=== PATIENT | female | born 1935 | race Two or more races ===

== ENCOUNTER 2025-01-19 09:32 | Emergency (ER) | payer OTHER ==
[~2025-01-19] VITALS: Ht 152.4 cm; Wt 72.6 kg
[2025-01-19] MEDS ORDERED: JANUVIA100 MG PO (09:47)
[2025-01-19] MEDS ORDERED: SIMVASTATIN80 MG PO (09:48)
[2025-01-19] MEDS ORDERED: LOSARTAN POTASS25 MG PO (10:09)
[2025-01-19 10:52] LABS: BASO % 0.3 % (0.1-1.2); EOS # 0.18 (0.04-0.54); EOS % 1.9 % (0.7-7.0); LYMPH # 2.00 (1.18-3.74); LYMPH % 21.6 % (19.3-53.1); MEAN PLATELET VOLUME 9.90 fl (9.4-12.4); MONO # 0.66 (0.24-0.82); MONO % 7.1 % (4.7-12.5); NEUT # 6.37 (1.56-6.13); NEUT % 68.9 % (34.0-71.1); RED CELL DISTRIBUTION WIDTH 14.2 % (11.6-14.4)
[2025-01-19 11:16] LABS: ALT/SGPT 22.0 U/L (12-78); AST/SGOT 19.0 U/L (15-37); BILIRUBIN TOTAL 0.38 mg/dL (0.3-1.2); BUN CREA RATIO 23.0 (7.0-25.0); CREATININE SERUM 1.14 mg/dL (0.55-1.02); GFR 45.09; GLOBULINA 4.4 G/DL (2.4-3.5); GLUCOSE FASTING 113.0 mg/dL (65-100); OSMOLALITY SERUM 287.0 MOSM/KG (275-295)
[2025-01-19 11:18] LABS: INR 1.09
[2025-01-19 11:20] LABS: D DIMER 1.38 MG/L
[2025-01-19 11:24] LABS: ERYTHROCYTE SEDIMENTATION RATE 55 mm/hr (0-30)
[2025-01-19] MEDS ORDERED: PLAVIX75 MG PO (12:26)
== END 2025-01-19 12:41 | disposition home or self-care (01) ==
LOC: ER 09:33
PROVIDERS: General Practice
DX: M79.606 Pain in leg, unspecified (principal); L03.90 Cellulitis, unspecified; I80.9 Phlebitis and thrombophlebitis of unspecified site; I10 Essential (primary) hypertension; E11.9 Type 2 diabetes mellitus without complications